=== PATIENT | male | born 1960 | race Caucasian/White ===

== ENCOUNTER 2018-02-07 11:57 | Emergency (ER) | payer BC ==
[~2018-02-07] VITALS: Ht 180.3 cm; Wt 80.4 kg
[~2018-02-07 11:57] MED LIST: ASPIR-LOW81 MG PO; ATORVASTATIN CA40 MG PO; CLOPIDOGREL75 MG PO; INDOCIN50 MG PO; KEPPRA500 MG PO; LEVETIRACETAM500 MG PO; LISINOPRIL5 MG PO; LO-DOSE ASPIRIN81 M2 PO; LORTAB 5-325 M1 EACH PO; NORCO 5/3251 TABLET PO; PRAVASTATIN SOD40 MG PO
[2018-02-07 13:05] LABS: HEMATOCRIT 36.4 % (38.0-50.0); MCHC 33.5 G/DL (30.0-36.0); MCV 95.5 FL (86-99); RBC DIS.WIDTH-CV 11.9 % (11.8-14.6); RBC DIS.WIDTH-SD 41.7 % (39-53); RED BLOOD COUNT 3.81 M/uL (4.00-5.50); WHITE BLOOD COUNT 7.3 K/uL (4.1-10.2)
[2018-02-07 13:08] LABS: HEMOGLOBIN 12.2 G/DL (12.5-16.6); PLATELET COUNT 250 K/uL (156-360)
[2018-02-07 13:15] LABS: CHLORIDE 107 mEq/L (99-109); POTASSIUM 4.9 mEq/L (3.7-5.4); SODIUM 141 mEq/L (136-147)
[2018-02-07 13:16] LABS: GLUCOSE 97 mg/dL (70-99)
[2018-02-07 13:20] LABS: CREATININE 0.8 mg/dL (0.6-1.3); GFR ESTIMATE (CALCULATED) > 59 mL/min/ (58.99-99999)
[2018-02-07 13:21] LABS: UREA NITROGEN (BUN) 18 mg/dL (9-23)
[2018-02-07 15:29] VITALS: BP 126/70
== END 2018-02-07 15:29 | disposition home or self-care (01) ==
LOC: RME 11:57 → EME 11:57 → RME 15:29
DX: R53.83 Other fatigue (principal); Z48.817 Encounter for surgical aftercare following surgery on the skin and subcutaneous tissue; I83.90 Asymptomatic varicose veins of unspecified lower extremity; E78.5 Hyperlipidemia, unspecified; I10 Essential (primary) hypertension; Z86.73 Personal history of transient ischemic attack (TIA), and cerebral infarction without residual deficits; G89.29 Other chronic pain; Z88.0 Allergy status to penicillin; Z87.891 Personal history of nicotine dependence
CPT/HCPCS: 71046; 80048; 81003; 85027; 93005; 99281; 99284